=== PATIENT | female | born 2000 | race Caucasian/White ===

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

== ENCOUNTER 2019-11-15 16:51 | Emergency (ER) | payer MEDICAID ==
[~2019-11-15] VITALS: Ht 165.1 cm; Wt 59.5 kg
[~2019-11-15 16:51] MED LIST: VIC-FORTE CAPSUL1 MG PO
[2019-11-15 17:04] VITALS: Ht 165.1 cm; Wt 59.5 kg
[2019-11-15 18:06] LABS: BASOPHILS 0.4 % (0-2); HEMATOCRIT 38.5 % (36.0-48.0); HEMOGLOBIN 11.8 g/dL (12-16); LYMPHOCYTES 32.4 % (15-50); MCH 23.1 pg (26.0-34.0); MCHC 30.6 g/dL (31.0-37.0); MCV 75.5 fL (80.0-100.0); MEAN PLATELET VOLUME 11.2 fL (7.4-10.4); MONOCYTES 4.1 % (2-11); NEUTROPHILS 62.1 % (40-80); PLATELET COUNT 379 10x3/uL (130-400); RDW 15.9 % (11.5-14.5); WBC 7.1 10x3/uL (4.8-10.8)
[2019-11-15 18:19] LABS: APTT 29.7 SECONDS (22.8-39.4); INR 0.98 (0.85-1.17); PROTIME 12.9 SECONDS (11.6-15.0)
[2019-11-15 18:35] LABS: CALC OSMOLALITY 277 mosm/kg (275-300); CALCIUM 9.4 mg/dL (8.5-10.1); CHLORIDE - SERUM 104 mmol/L (98-107); CREATININE - SERUM 0.7 mg/dL (0.6-1.3); GLUCOSE 102 mg/dL (74-106); POTASSIUM - SERUM 4.3 mmol/L (3.5-5.1); SODIUM 139 mmol/L (136-145); UREA NITROGEN 12 mg/dL (7-18); eGFR NON AFRICAN AMERICAN > 90 mL/min (90-120)
[2019-11-15 18:42] LABS: ALBUMIN 4.1 g/dL (3.4-5.0); ALKALINE PHOSPHATASE 91 U/L (30-120); ALT (SGPT) 16 U/L (10-68); BILIRUBIN - TOTAL 0.19 mg/dL (0.2-1.3); CKMB 0.3 U/L (0.0-3.6); CREATINE KINASE 90 UL (21-215); PRO BNP 79 pg/mL (0-125); PROTEIN - SERUM 7.4 g/dL (6.4-8.2)
[2019-11-15 18:48] LABS: TROPONIN-I < 0.017 ng/mL (0.000-0.060)
[2019-11-15] MEDS ORDERED: ZOFRAN4 MG PO (19:08)
[2019-11-15 19:46] VITALS: BP 110/54
== END 2019-11-15 19:23 | disposition home or self-care (01) ==
LOC: D.ER 16:51
PROVIDERS: Family Medicine
DX: R50.9 Fever, unspecified (principal); R53.83 Other fatigue; R05 Cough; B97.29 Other coronavirus as the cause of diseases classified elsewhere